=== PATIENT | male | born 1985 | race Caucasian/White ===

== ENCOUNTER 2024-03-23 20:49 | Emergency (ER) | payer OTHER, SELFPAY ==
[2024-03-23 21:00] VITALS: BP 175/18
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
[2024-03-24] MEDS: ADACEL 0.5 ML IM (01:28)
[2024-03-24] MEDS: AUGMENTIN 875 MG/125 MG 1 TABLET PO (01:30)
[2024-03-24] MEDS: MOTRIN 800 MG PO (01:30)
[2024-03-24 02:00] VITALS: BP 158/75
[2024-03-24 21:22] LABS: Hepatitis B Surface Antibody Positive; Hepatitis C Antibody Negative (Negative)
[2024-03-25 13:41] LABS: HIV Combo Negative (Negative)
== END 2024-03-24 02:10 | disposition home or self-care (01) ==
LOC: EMR 20:49
PROVIDERS: EMERGENCY PHYSICIAN Emergency Medicine
DX: S61.237A Puncture wound without foreign body of left little finger without damage to nail, initial encounter (principal); S60.042A Contusion of left ring finger without damage to nail, initial encounter; S60.052A Contusion of left little finger without damage to nail, initial encounter; R20.0 Anesthesia of skin; M79.89 Other specified soft tissue disorders; Y04.1XXA Assault by human bite, initial encounter; Y93.89 Activity, other specified; Y92.149 Unspecified place in prison as the place of occurrence of the external cause; Y99.0 Civilian activity done for income or pay; R03.0 Elevated blood-pressure reading, without diagnosis of hypertension; Z23 Encounter for immunization
CPT/HCPCS: 99283; 29125; 90471; 73080; 73130; 86706; 86803; 87389; 90715